=== PATIENT | female | born 1940 | race Caucasian/White ===

== ENCOUNTER 2023-04-01 06:01 | Observation (INO) | payer OTHER ==
[2023-03-28 13:43] LABS: Absolute Lymphocytes (CBC) 1.6 K/uL (0.7-4.9); Hematocrit 41.8 % (36.0-45.0); Lymphocytes % 26.3 % (15.3-44.8); MCV 90.8 fL (80-100); MPV 9.6 fL (7.6-11.3)
[2023-03-28 13:59] LABS: Potassium 4.2 mEq/L (3.5-5.1)
[2023-04-01] MEDS ORDERED: CLINDAMYCIN 900MG/D5W 900 MG/50 ML IVPB IV ONE (06:24)
[2023-04-01] MEDS ORDERED: Ringers Lactate 1,000 ML IV ONE (06:24)
[2023-04-01] MEDS ORDERED: DEPO-MEDROL 40 MG/ML IM ONE (06:34)
[2023-04-01] MEDS ORDERED: propofoL 200 MG/20 ML VIAL IV ONE ×4 (06:34→09:03)
[2023-04-01] MEDS ORDERED: KETAMINE HCL IN 0.9 % NACL 50 MG/5 ML SYRINGE IV ONE (06:35)
[2023-04-01] MEDS ORDERED: THROMBIN 5000 UNITS/VIAL TOP ONE (06:35)
[2023-04-01] MEDS ORDERED: dexAMETHasone 10 MG/ML VIAL ONE (06:35)
[2023-04-01] MEDS ORDERED: FENTANYL CITR 100 MCG/2 ML ONE (06:35)
[2023-04-01] MEDS ORDERED: MIDAZOLAM HCL 2 MG/2 ML INJ ONE (06:35)
[2023-04-01] MEDS ORDERED: LIDOCAINE 2% MPF 5 ML VIAL ONE (06:35)
[2023-04-01] MEDS ORDERED: ONDANSETRON 4 MG/2 ML VIAL ONE (06:36)
[2023-04-01] MEDS ORDERED: ROCURONIUM 50 MG/5 ML VIAL IV ONE (06:41)
[2023-04-01] MEDS ORDERED: EPHEDRINE SULF 50 MG/ML VIAL ONE (07:55)
[2023-04-01] MEDS: TRANEXAMIC ACID 1,000 MG/10 ML VIAL IV ONE ×2 (08:30→08:38)
[2023-04-01] MEDS ORDERED: VANCOMYCIN 1 GM/VIAL ONE (09:13)
[2023-04-01] MEDS ORDERED: KETOROLAC 30 MG/ML INJ ONE (09:17)
[2023-04-01] MEDS ORDERED: Mastisol Adhesive Liq ONE (09:27)
[2023-04-01] MEDS: HYDROMORPHONE HCL 2 MG/ML inj ONE ×4 (10:01→10:47)
[2023-04-01] MEDS: Ringers Lactate 1,000 ML IV ONE ×2 (10:13→10:47)
[2023-04-01] MEDS ORDERED: MORPHINE 2 MG/ML SYR IV PRN (10:41)
[2023-04-01] MEDS ORDERED: ONDANSETRON 4 MG/2 ML VIAL IV PRN (10:44)
[2023-04-01] MEDS ORDERED: HYDROCODONE/APAP 7.5/325 MG TAB PO PRN (10:46)
--- OUTSIDE RECORDS SUMMARY | 2023-04-01 10:50 | XMS REPORT | Continuity of Care Document ---
:1940 Author Organization [facility] t Address [address] [place] [address] Care Team Providers Name Role Phone CRISTINA VÁSQUEZ Primary Care Physician Unavailable Cristina Vásquez Attending Clinician Unavailable Shelli Pearl Attending Clinician Unavailable ANDRES OBREGON Attending Clinician Unavailable Latrell Lott DO Attending Clinician MACY DONIS Attending Clinician Unavailable Param Hodge MD Attending Clinician PARAM HODGE Attending Clinician Unavailable Magdalena Cardenas RPH Attending Clinician Unavailable Macy Donis MD Attending Clinician Doctor Unassigned, [place] Attending Clinician Unavailable Mariano Reynolds MA Attending Clinician Unavailable YESENIA CORBETT Attending Clinician Unavailable KERRI BRYANT Attending Clinician Unavailable MISAEL KC Attending Clinician Unavailable MACY DONIS Admitting Clinician Unavailable YESENIA CORBETT Admitting Clinician Unavailable Payers Payer Name Policy Type Policy Number Effective Date Expiration Date S ource MEDICARE MB [id number] 2006 [facility] [place] 00:00:[place] [id number] [facility] [place] [id number] 2017 [facility] 00:[facility]:[address] [facility] MEDICARE MB [id number] 2006 [facility] NOVITAS 00:00:00 [place] [id number] [facility] [place] [id number] 2017 [facility] 00:00:00 [facility] Problems Condition Condition Condition Status Onset Resolution Last Treating Co mments Source Name Details Category Date Date Treatment Clinician Date Osteopenia Osteopenia Disease Active M ethodi of of 11-29 st multiple multiple 00:00: Hospit a sites sites 00 l Rheumatoid Rheumatoid Disease Active M ethodi arthritis arthritis 03-04 involving involving 00:00: Hosp juan f multiple multiple 00 l sites with sites with positive positive rheumatoid rheumatoid factor factor Long-term Long-term Disease Active Met hodi use of use of 03-04 high-risk high-risk 00:00: Hosp juan f medication medication 00 l 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 unspecifie 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 disease, St unspecifie [facility] d whether [facility] Sciatica Sciatica Problem Commo n of right [facility] side [facility] Allergic Allergic Disease Active Metho di st Hospita l Arthritis Arthritis Disease Active Met hodi st [facility]ospita l Diabetes Diabetes Disease Active Overview: Me thodi mellitus mellitus Formattin st g of this Hospita note l might be different from the original. Pre Diabetic Hypertensi Hypertensi Disease Active M ethodi on on st Hospita l Allergies, Adverse Reactions, Alerts Allergy Allergy Status Severity Reaction(s) Onset Inactive Treating Comm ents Source Name Type Date Date Clinician LEFLUNOM DRUG Active Unknown-Cmnt 2021-10 Un harrsi EMMANUEL INGREDI 2-21 ity of 00:00: [place] 00 [facility] METHOTRE DRUG Active Unknown-Cmnt 2021-10 Un harris XATE INGREDI 2-21 ity of 00:00: Medical Branch Leflunom Propensi Active Unknown - 2021-10 Uni vers emmanuel ty to See comments 2-21 ity of adverse 00:00: [place] reaction 00 Medical s Branch Methotre Propensi Active Unknown - 2021-10 Uni vers xate ty to See comments 2-21 ity of adverse 00:00: [place] reaction 00 Medical s Branch MELOXICA DRUG Active High COUGH 2018-10 Univers M INGREDI 0- ity of 00:00: 00 Medical Branch Meloxica Propensi Active Other - See 2018-10 Double U nivers m ty to comments 031 Vision[facility]Ki ity o f adverse 00:00: dney [place] reaction issue per Medic al s patient Branch at this timeDoubl e Vision.Ki dney issue per patient at this time Meloxica Propensi Active Cough 2018-10 Double Method i m ty to 0-[address] adverse 00:00: dney Hospita reaction 00 issue per l s to patient drug at this time Penicill Propensi Active Rash Method i ins ty to 1-10 st adverse 00:00: Hospita reaction 00 l s to drug PENICILL Drug Active Low Rash Univers INS Class 10-07 ity of 00:00: [place] [facility] [place] Penicill Drug Active Rash Univers ins Allergy 10-07 ity of 00:00: [address] methotre methotre Active wt loss, Comm on xate xate hair loss [facility] leflunom leflunom Active unwell Common emmanuel emmanuel [facility] meloxica meloxica Active kidney Common m m failure [facility] NO KNOWN Drug Active Univers ALLERGIE Class ity of S [facility] [place] [facility] Family History Family Member Diagnosis Comments Start Date Stop Date Source Natural brother Hypertension [facility] Natural brother Cancer [facility] Natural brother Heart disease [facility] child Cancer [facility]ital Cousin Diabetes Jainism [facility] ital Natural daughter Cancer [facility] Natural father Alcohol abuse [facility] Maternal grandfather Diabetes [facility] Maternal grandfather Heart disease [facility] Maternal grandfather Hypertension [facility] Maternal grandmother Hypertension [facility] Maternal grandmother Stroke [facility] Natural mother Heart disease [facility] Natural [facility] Hy[facility] Natural mother Osteoarthritis [facility] Natural mother Other [facility] Natural mother Rheum arthritis [facility] Paternal grandfather Alcohol abuse [facility] Paternal grandmother [facility] Social History Social Habit Start Date Stop Date Quantity Comments Source Gender identity 2020-02-20 Identifies as Method ist 10:33:32 female gender Hospital (finding) Sexual orientation 2020-02-20 [facility] Hospital [facility] of Tobacco [facility] Use [facility] Tobacco use and 2023-02-22 2023-02-22 Smokeless tobacco Me thodist exposure 00:00:00 00:00:00 non-user Hospital Alcohol intake 2023-02-22 2023-02-22 Ex-drinker Jainism 00:00:00 00:00:00 (finding) Hospital History of Social 2023-02-22 2023-02-[address] function 00:00:00 00:00:00 Hospital Exposure to 2022-12-10 2022-12-20 Not sure [facility]-CoV-2 (event) 00:00:00 08:13:00 [facility] [place] [facility] Sex Ass[birth year] At [birth year] Universit y of 00:00:00 00:00:00 [facility] [place] [facility] Smoking Status Start Date Stop Date Source Never smoked tobacco Jainism H [facility]spital Tobacco [facility] Medications Ordered Filled Start Stop Current Ordering Indication Dosage Frequency Signature Comments Components Source Medication Medication Date Date Medication? Clinician (SIG) Name Name CALCIUM Yes 1{tbl} QD Take 1 Method i CARBONATE/V 5-[address] ITAMIN D3 10:56: mouth Hospita (CALCIUM 06 daily. l 600 + D,3, ORAL) OMEGA-3 Yes 1{tbl} QD Take 1 Method i FATTY 5-[address] ACIDS/FISH 10:20: mouth Hospit a OIL (OMEGA 54 daily. l 3 FISH OIL ORAL) multivitami Yes 1{tbl} QD Take 1 Me thodi n tablet 5-[address] 10:20: mouth Hospita 54 daily. l cyanocobala Yes 500ug QD Take 1 Met hodi min 5-[address] (VITAMIN 10:20: (500 mcg Hospi ta B-12) 500 54 total) by l MCG tablet mouth daily. denosumab Yes 60mg Q180D Inject 1 Met hodi (PROLIA) 60 5-19 mL ([address] mg/mL 10:20: total) Hospita syringe 54 under the l syringe skin every 6 (six) months. hydroxychlo Yes [id number] 200mg QD Take 1 Methodi roquine 5-[address] (PLAQUENIL) 00:00: (200 mg Hos gagan 200 mg 00 total) by l tablet mouth daily. vitamin Yes 1{capsu Take 1 Metho di D3-vitamin 5-13 le} capsule by st K2 00:00: mouth. Hospita 1,250-200 00 l mcg capsule hydroxychlo 2022-0 2022- No [id number] TAKE 1 Methodi roquine 4-24 05-[address] (PLAQUENIL) 00:00: 00:00 MOUTH Hosp juan f 200 mg 00 :00 TWICE l tablet DAILY lidocaine 2022-0 Yes ZTlido 1.8 Un harris (ZTLIDO) 3-16 % topical ity of 1.8 % PtMd 08:24: patch [place] 50 APPLY 1 Medical PATCH BY Branch TOPICAL ROUTE ONCE DAILY (MAY WEAR UP TO 12HOURS.) lidocaine 2022-0 Yes ZTlido 1.8 Un harris (ZTLIDO) 3-16 % topical ity of 1.8 % PtMd 08:24: patch [place] 50 APPLY 1 Medical PATCH BY Branch TOPICAL ROUTE ONCE DAILY (MAY WEAR UP TO 12HOURS.) alendronate 2022-0 Yes alendronat Univers 70 mg 3-16 e 70 mg ity of tablet 08:24: tablet [address] vitamin 3-0 Yes 500ug Take 1 Univers B-12 500 3-16 tablet by ity of mcg tablet 08:24: mouth. [address] denosumab 2022-0 Yes 60mg inject 1 Univ ers 60 mg/mL 3-16 mL under ity of injection 08:24: the skin. Ian as 49 [facility] alendronate 2022-0 Yes alendronat Univers 70 mg 3-16 e 70 mg ity of tablet 08:24: tablet [address] vitamin 3-0 Yes 500ug Take 1 Univers B-12 500 3-16 tablet by ity of mcg tablet 08:24: mouth. [address] denosumab 2022-0 Yes 60mg inject 1 Univ ers 60 mg/mL 3-16 mL under ity of injection 08:24: the skin. Ian as 49 [facility] hydrOXYchlo 2022-0 Yes Univer s roQUINE 200 2-21 ity of mg tablet 00:00: [address] hydrOXYchlo 3-0 Yes Univer s roQUINE 200 2-21 ity of mg tablet 00:00: [address] hydroxychlo 3-0 2023- No [id number] 200mg Q.5D Take 1 Methodi roquine 2-21 04-[address] (PLAQUENIL) 00:00: 00:00 (200 mg Ho spita 200 mg 00 :00 total) by l tablet mouth 2 (two) times a day. atorvastati Yes Univer s n 20 mg 2-20 ity of tablet 00:00: [place] [facility] atorvastati 0 Yes Univer s n 20 mg 2-20 ity of tablet 00:00: [place] [facility] atorvastati 0 Yes Univer s n 20 mg 2-20 ity of tablet 00:00: [place] [facility] atorvastati 0 Yes Univer s n 20 mg 2-20 ity of tablet 00:00: [address] atorvastati Yes Method i n (LIPITOR) 2-20 st 20 mg 00:00: Hospita tablet 00 l hydrOXYchlo 2023- No 200mg Take 1 Un harris roQUINE 200 06-19 tablet by it y of mg tablet 00:00: 05:59 mouth. [place] 00 :00 [facility] hydrOXYchlo 2023- No 200mg Take 1 Un harris roQUINE 200 06-19-22 tablet by it y of mg tablet 00:00: 05:59 mouth. [place] 00 :00 [facility] hydrOXYchlo 2022- No [id number] TAKE 1 Methodi roQUINE 06-[address] (PLAQUENIL) 00:00: 00:00 MOUTH IN H ospita 200 mg 00 :00 THE l tablet MORNING AND 1 TABLET BY MOUTH BEFORE BEDTIME hydrOXYchlo 2021-2021- No [id number] TAKE 1 Methodi roQUINE 04-16-[address] (PLAQUENIL) 00:00: 00:00 MOUTH IN H ospita 200 mg 00 :00 THE l tablet MORNING AND 1 TABLET BEFORE BEDTIME hydrOXYchlo 2021-2021- No [id number] 200mg Q.5D Take 1 Methodi roQUINE 03-14-[address] (PLAQUENIL) 00:00: 00:00 (200 mg Ho spita 200 mg 00 :00 total) by l tablet mouth 2 (two) times a day. [employer] BR[employer] ONLY PER PT REQUEST diclofenac 2022- No Q.25D Apply Meth regis (Voltaren) 11-[address] 1 % gel 00:00: 05:59 4 (four) Hospi ta 00 :00 times a l day. Atorvastati Atorvastati Yes Shelli 1 tablet Common n Calcium n Calcium 4-25 Millender in evening Spirit 00:00: - [facility] Dexamethaso Dexamethaso 2018-0 No 10mg Common ne ne 11-27 Spirit 00:00: - [facility] Dexamethaso Dexamethaso 2018-0 No 10mg Common ne ne 11-27 Spirit 00:00: - [facility] Dexamethaso Dexamethaso 2018-0 No 10mg Common ne ne 11-27 Spirit 00:00: - [facility] Dexamethaso Dexamethaso 2018-0 No 10mg Common ne ne 11-27 Spirit 00:00: - [facility] Dexamethaso Dexamethaso 2018-0 No 10mg Common ne ne 11-27 Spirit 00:00: - [facility] Dexamethaso Dexamethaso 2018-0 No 10mg Common ne ne 11-27 Spirit 00:00: - [facility] Dexamethaso Dexamethaso 2018-0 No 10mg Common ne ne 11-27 Spirit 00:00: - [facility] Dexamethaso Dexamethaso 2018-0 No 10mg Common ne ne 11-27 Spirit 00:00: - [facility] Dexamethaso Dexamethaso 2018-0 No 10mg Common ne ne 11-27 Spirit 00:00: - [facility] ascorbic 2017-0 Yes Methodi acid, 10-07 st vitamin C, 00:00: Hospita (VITAMIN C) 00 l 1000 MG tablet RESTASIS 2015-10 Yes 1[drp] Administer M ethodi 0.05 % 1-[address] ophthalmic 00:00: both eyes. H ospita emulsion 00 l lisinopril 2015-10 Yes 5mg QD Take 1 Metho di (PRINIVIL,Z 1-09 tablet (5 st ESTRIL) 5 00:00: mg total) Hos gagan mg tablet 00 by mouth l daily. Lipitor Lipitor Yes Shelli 1 tablet Comm on Millender [facility] Methotrexat Methotrexat Yes Shelli not Common e e Millender defined [facility] Leflunomide Leflunomide Yes Shelli 1 tablet Common Millender [facility] Hydroxychlo Hydroxychlo Yes Shelli 1 tablet Common roquine roquine Millender with food Spirit Sulfate Sulfate or milk [facility] Lisinopril Lisinopril Yes Shelli as Co mmon Millender directed [facility] Pryor 3 Pryor 3 Yes Shelli 1 capsule Com mon Millender [facility] Elyssa Elyssa Yes Shelli not Common Millender defined [facility] Restasis Restasis Yes Shelli not Common Millender defined [facility] Meloxicam Meloxicam Yes Shelli not Comm on Millender defined [facility] Folic Acid Folic Acid Yes Shelli not Co mmon Millender defined [facility] Celebrex Celebrex Yes Shelli 1 capsule C ommon Millender with food Spiri [facility] Calcium + Calcium + No 1{table QD Calcium + D3 600-800 D3 600-800 t_with_ D3 600-800 MG-UNIT MG-UNIT a_meal} MG-UNIT Atorvastati Atorvastati No Atorvastat n Calcium n Calcium in Calcium 20 MG 20 MG 20 MG Restasis Restasis No Restasis Hydroxychlo Hydroxychlo No 1{table Hydroxychl roquine roquine t_with_ oroquine Sulfate 200 Sulfate 200 food_or Sulfate MG MG _milk} 200 MG Lisinopril Lisinopril No 1{table QD Lisinopril 5 MG 5 MG t} 5 MG Multi For Multi For No Multi For Her 50+ - Her 50+ - Her 50+ - Prolia 60 Prolia 60 No Prolia 60 MG/ML MG/ML MG/ML Pryor 3 340 Pryor 3 340 No 1{capsu QD Pryor 3 MG MG le} 340 MG Elyssa Elyssa No Elyssa Calcium + Calcium + No 1{table QD Calcium + D3 600-800 D3 600-800 t_with_ D3 600-800 MG-UNIT MG-UNIT a_meal} MG-UNIT Atorvastati Atorvastati No Atorvastat n Calcium n Calcium in Calcium 20 MG 20 MG 20 MG Restasis Restasis No Restasis Hydroxychlo Hydroxychlo No 1{table Hydroxychl roquine roquine t_with_ oroquine Sulfate 200 Sulfate 200 food_or Sulfate MG MG _milk} 200 MG Elyssa Elyssa No Elyssa Multi For Multi For No Multi For Her 50+ - Her 50+ - Her 50+ - Prolia 60 Prolia 60 No Prolia 60 MG/ML MG/ML MG/ML Pryor 3 340 Pryor 3 340 No 1{capsu QD Pryor 3 MG MG le} 340 MG Lisinopril Lisinopril No Lisinopril 5 MG 5 MG 5 MG Calcium + Calcium + No 1{table QD Calcium + D3 600-800 D3 600-800 t_with_ D3 600-800 MG-UNIT MG-UNIT a_meal} MG-UNIT Restasis Restasis No Restasis Elyssa Elyssa No Elyssa Multi For Multi For No Multi For Her 50+ - Her 50+ - Her 50+ - Atorvastati Atorvastati No Atorvastat n Calcium n Calcium in Calcium 20 MG 20 MG 20 MG Prolia 60 Prolia 60 No Prolia 60 MG/ML MG/ML MG/ML Hydroxychlo Hydroxychlo No 1{table Hydroxychl roquine roquine t_with_ oroquine Sulfate 200 Sulfate 200 food_or Sulfate MG MG _milk} 200 MG Pryor 3 340 Pryor 3 340 No 1{capsu QD Pryor 3 MG MG le} 340 MG Lisinopril Lisinopril No Lisinopril 5 MG 5 MG 5 MG Elyssa Elyssa No Elyssa Hydroxychlo Hydroxychlo No 1{table Hydroxychl roquine roquine t_with_ oroquine Sulfate 200 Sulfate 200 food_or Sulfate MG MG _milk} 200 MG Restasis Restasis No Restasis Prolia 60 Prolia 60 No Prolia 60 MG/ML MG/ML MG/ML Pryor 3 340 Pryor 3 340 No 1{capsu QD Pryor 3 MG MG le} 340 MG Calcium + Calcium + No 1{table QD Calcium + D3 600-800 D3 600-800 t_with_ D3 600-800 MG-UNIT MG-UNIT a_meal} MG-UNIT Lisinopril Lisinopril No Lisinopril 5 MG 5 MG 5 MG Multi For Multi For No Multi For Her 50+ - Her 50+ - Her 50+ - Atorvastati Atorvastati No Atorvastat n Calcium n Calcium in Calcium 20 MG 20 MG 20 MG Elyssa Elyssa No Elyssa Hydroxychlo Hydroxychlo No 1{table Hydroxychl roquine roquine t_with_ oroquine Sulfate 200 Sulfate 200 food_or Sulfate MG MG _milk} 200 MG Restasis Restasis No Restasis Prolia 60 Prolia 60 No Prolia 60 MG/ML MG/ML MG/ML Pryor 3 340 Pryor 3 340 No 1{capsu QD Pryor 3 MG MG le} 340 MG Calcium + Calcium + No 1{table QD Calcium + D3 600-800 D3 600-800 t_with_ D3 600-800 MG-UNIT MG-UNIT a_meal} MG-UNIT Lisinopril Lisinopril No Lisinopril 5 MG 5 MG 5 MG Multi For Multi For No Multi For Her 50+ - Her 50+ - Her 50+ - Atorvastati Atorvastati No Atorvastat n Calcium n Calcium in Calcium 20 MG 20 MG 20 MG Elyssa Elyssa No Elyssa Hydroxychlo Hydroxychlo No 1{table Hydroxychl roquine roquine t_with_ oroquine Sulfate 200 Sulfate 200 food_or Sulfate MG MG _milk} 200 MG Restasis Restasis No Restasis Prolia 60 Prolia 60 No Prolia 60 MG/ML MG/ML MG/ML Pryor 3 340 Pryor 3 340 No 1{capsu QD Pryor 3 MG MG le} 340 MG Calcium + Calcium + No 1{table QD Calcium + D3 600-800 D3 600-800 t_with_ D3 600-800 MG-UNIT MG-UNIT a_meal} MG-UNIT Lisinopril Lisinopril No Lisinopril 5 MG 5 MG 5 MG Multi For Multi For No Multi For Her 50+ - Her 50+ - Her 50+ - Atorvastati Atorvastati No Atorvastat n Calcium n Calcium in Calcium 20 MG 20 MG 20 MG Elyssa Elyssa No Elyssa Hydroxychlo Hydroxychlo No 1{table Hydroxychl roquine roquine t_with_ oroquine Sulfate 200 Sulfate 200 food_or Sulfate MG MG _milk} 200 MG Restasis Restasis No Restasis Prolia 60 Prolia 60 No Prolia 60 MG/ML MG/ML MG/ML Pryor 3 340 Pryor 3 340 No 1{capsu QD Pryor 3 MG MG le} 340 MG Calcium + Calcium + No 1{table QD Calcium + D3 600-800 D3 600-800 t_with_ D3 600-800 MG-UNIT MG-UNIT a_meal} MG-UNIT Lisinopril Lisinopril No Lisinopril 5 MG 5 MG 5 MG Multi For Multi For No Multi For Her 50+ - Her 50+ - Her 50+ - Atorvastati Atorvastati No Atorvastat n Calcium n Calcium in Calcium 20 MG 20 MG 20 MG Elyssa Elyssa No Elyssa Hydroxychlo Hydroxychlo No 1{table Hydroxychl roquine roquine t_with_ oroquine Sulfate 200 Sulfate 200 food_or Sulfate MG MG _milk} 200 MG Restasis Restasis No Restasis Prolia 60 Prolia 60 No Prolia 60 MG/ML MG/ML MG/ML Pryor 3 340 Pryor 3 340 No 1{capsu QD Pryor 3 MG MG le} 340 MG Calcium + Calcium + No 1{table QD Calcium + D3 600-800 D3 600-800 t_with_ D3 600-800 MG-UNIT MG-UNIT a_meal} MG-UNIT Lisinopril Lisinopril No Lisinopril 5 MG 5 MG 5 MG Multi For Multi For No Multi For Her 50+ - Her 50+ - Her 50+ - Atorvastati Atorvastati No Atorvastat n Calcium n Calcium in Calcium 20 MG 20 MG 20 MG Elyssa Elyssa No Elyssa Hydroxychlo Hydroxychlo No 1{table Hydroxychl roquine roquine t_with_ oroquine Sulfate 200 Sulfate 200 food_or Sulfate MG MG _milk} 200 MG Prolia 60 Prolia 60 No Prolia 60 MG/ML MG/ML MG/ML Multi For Multi For No Multi For Her 50+ - Her 50+ - Her 50+ - Pryor 3 340 Pryor 3 340 No 1{capsu QD Pryor 3 MG MG le} 340 MG Atorvastati Atorvastati No QD Atorvastat n Calcium n Calcium in Calcium 20 MG 20 MG 20 MG Lisinopril Lisinopril No Lisinopril 5 MG 5 MG 5 MG Calcium + Calcium + No 1{table QD Calcium + D3 600-800 D3 600-800 t_with_ D3 600-800 MG-UNIT MG-UNIT a_meal} MG-UNIT Restasis Restasis No Restasis Alendronate Alendronate No Alendronat Sodium 70 Sodium 70 e Sodium MG MG 70 MG Pryor 3 340 Pryor 3 340 No 1{capsu QD Pryor 3 MG MG le} 340 MG Elyssa Elyssa No Elyssa Restasis Restasis No Restasis Multi For Multi For No Multi For Her 50+ - Her 50+ - Her 50+ - Calcium + Calcium + No 1{table QD Calcium + D3 600-800 D3 600-800 t_with_ D3 600-800 MG-UNIT MG-UNIT a_meal} MG-UNIT Atorvastati Atorvastati No QD Atorvastat n Calcium n Calcium in Calcium 20 MG 20 MG 20 MG Hydroxychlo Hydroxychlo No 1{table Hydroxychl roquine roquine t_with_ oroquine Sulfate 200 Sulfate 200 food_or Sulfate MG MG _milk} 200 MG Lisinopril Lisinopril No 1{table QD Lisinopril 5 MG 5 MG t} 5 MG Calcium + Calcium + No 1{table QD Calcium + D3 600-800 D3 600-800 t_with_ D3 600-800 MG-UNIT MG-UNIT a_meal} MG-UNIT Alendronate Alendronate No Alendronat Sodium 70 Sodium 70 e Sodium MG MG 70 MG Restasis Restasis No Restasis Elyssa Elyssa No Elyssa Lisinopril Lisinopril No 1{table QD Lisinopril 5 MG 5 MG t} 5 MG Hydroxychlo Hydroxychlo No 1{table Hydroxychl roquine roquine t_with_ oroquine Sulfate 200 Sulfate 200 food_or Sulfate MG MG _milk} 200 MG Multi For Multi For No Multi For Her 50+ - Her 50+ - Her 50+ - Pryor 3 340 Pryor 3 340 No 1{capsu QD Pryor 3 MG MG le} 340 MG Atorvastati Atorvastati No QD Atorvastat n Calcium n Calcium in Calcium 20 MG 20 MG 20 MG Immunizations Ordered Immunization Filled Immunization Date Status Commen ts Source Name Name VALENTINO COVID-19 2021-10-11 Completed Method[facility] t MRNA VACCINATION 00:00:00 Hospital FLUZONE HIGH DOSE FLUZONE HIGH DOSE 2021-07-03 Completed [facility] - OVER [facility] OVER 65 08:32:00 [facility] FLUZONE HIGH DOSE FLUZONE HIGH DOSE 2021-07-03 Completed [facility] - OVER 65 OVER 65 08:32:00 [facility] FLUZONE HIGH DOSE FLUZONE HIGH DOSE 2021-07-03 Completed [facility] - OVER 65 OVER 65 08:32:00 [facility] FLUZONE HIGH DOSE FLUZONE HIGH DOSE 2021-07-03 Completed [facility] - OVER 65 OVER 65 08:32:00 [facility] FLUZONE HIGH DOSE FLUZONE HIGH DOSE 2021-07-03 Completed [facility] - OVER 65 OVER 65 08:32:00 [facility] FLUZONE HIGH DOSE FLUZONE HIGH DOSE 2021-07-03 Completed [facility] - OVER 65 OVER 65 08:32:00 [facility] FLUZONE HIGH DOSE FLUZONE HIGH DOSE 2021-07-03 Completed [facility] - OVER 65 OVER 65 08:32:00 [facility] FLUZONE HIGH DOSE FLUZONE HIGH DOSE 2021-07-03 Completed [facility] - OVER 65 OVER 65 08:32:00 [facility] FLUZONE HIGH DOSE FLUZONE HIGH DOSE 2021-07-03 Completed [facility] - OVER 65 OVER 65 08:32:00 [facility] FLUZONE HIGH DOSE FLUZONE HIGH DOSE 2021-07-03 Completed [facility] - OVER 65 OVER 65 08:32:00 [facility] FLUZONE HIGH DOSE FLUZONE HIGH DOSE 2021-07-03 Completed [facility] - OVER 65 OVER 65 08:32:00 [facility] COVID-19 Vaccine COVID-19 Vaccine 2021-02-18 Completed Co [facility] - (Michael) (Michael) 08:30:00 [facility] COVID-19 Vaccine COVID-19 Vaccine 2021-02-18 Completed Co [facility]mon [facility] - (Michael) (Michael) 08:30:00 [facility] COVID-19 Vaccine COVID-19 Vaccine 2021-02-18 Completed Co [facility]mon [facility] - (Michael) (Michael) 08:30:00 [facility] COVID-19 Vaccine COVID-19 Vaccine 2021-02-18 Completed Co [facility] - (Michael) (Michael) 08:30:00 [facility] COVID-19 Vaccine COVID-19 Vaccine 2021-02-18 Completed Co mmon [facility] - (Michael) (Michael) 08:30:00 [facility] COVID-19 Vaccine COVID-19 Vaccine 2021-02-18 Completed [facility] (Michael) (Michael) 08:30:00 [facility] COVID-19 Vaccine COVID-19 Vaccine 2021-02-18 Completed [facility] (Michael) (Michael) 08:30:00 [facility] COVID-19 Vaccine COVID-19 Vaccine 2021-02-18 Completed [facility] (Michael) (Michael) 08:30:00 [facility] COVID-19 Vaccine COVID-19 Vaccine 2021-02-18 Completed [facility] (Michael) (Michael) 08:30:00 [facility] COVID-19 Vaccine COVID-19 Vaccine 2021-02-18 Completed [facility] (Michael) (Michael) 08:30:00 [facility] COVID-19 Vaccine COVID-19 Vaccine 2021-02-18 Completed [facility] (Michael) (Michael) 08:30:00 [facility] MICHAEL COVID-19 2021-02-18 Completed Methodis t AD26 VACCINATION 00:00:00 Hospital PNEUMAVAX 23 PNEUMAVAX 2019-05-05 Completed [facility] - 11:46:00 [facility] PNEUMAVAX 23 PNEUMAVAX 2019-05-05 Completed [facility] - 11:46:00 [facility] PNEUMAVAX 23 PNEUMAVAX 2019-05-05 Completed [facility] - 11:46:00 [facility] PNEUMAVAX 23 PNEUMAVAX 2019-05-05 Completed [facility] - 11:46:00 [facility] PNEUMAVAX 23 PNEUMAVAX 2019-05-05 Completed [facility] - 11:46:00 [facility] PNEUMAVAX 23 PNEUMAVAX 2019-05-05 Completed [facility] - 11:46:00 [facility] PNEUMAVAX 23 PNEUMAVAX 2019-05-05 Completed [facility] - 11:46:00 [facility] PNEUMAVAX 23 PNEUMAVAX 2019-05-05 Completed [facility] - 11:46:00 [facility] PNEUMAVAX 23 PNEUMAVAX 23 2019-05-05 Completed [facility] - 11:46:00 [facility] PNEUMAVAX 23 PNEUMAVAX 2019-05-05 Completed [facility] - 11:46:00 [facility] PNEUMAVAX 23 PNEUMAVAX 2019-05-05 Completed [facility] - 11:46:00 [facility] PNEUMAVAX 23 PNEUMAVAX 2019-05-05 Completed [facility] - 00:00:00 [facility] Dexamethasone Dexamethasone 2017-11-27 Completed [facility] p[facility] - 10:52:00 [facility] Dexamethasone Dexamethasone 2017-11-27 Completed [facility] - 10:52:00 [facility] Vital Signs Vital Name Observation Time Observation Value Comments Source Systolic blood 2022-12-20 13:23:00 143 mm[Hg] [facility] Diastolic blood 2022-12-20 13:23:00 70 mm[Hg] [facility] Heart rate 2022-12-20 13:23:00 69 /min [facility] Body height 2022-12-20 13:21:00 167.6 cm [facility] Body weight 2022-12-20 13:21:00 81.012 kg [facility] BMI 2022-12-20 13:21:00 28.83 kg/m2 [facility] height 2022-07-27 09:40:00 66.3 [in_i] [facility] S pirit [facility] weight 2022-07-27 09:40:00 185.4 [lb_av] [facility] temperature 2022-07-27 09:40:00 96.8 [degF] [facility] bmi 2022-07-27 09:40:00 29.65 kg/m2 [facility] oximetry 2022-07-27 09:40:00 97 % Common [facility] respiratory rate 2022-07-27 09:40:00 18 /min Comm on [facility] blood pressure 2022-07-27 09:40:00 139 mm[Hg] [facility] - systolic [facility] blood pressure 2022-07-27 09:40:00 63 mm[Hg] [facility] - diastolic [facility] height 2022-07-25 10:00:00 65.5 [in_i] Common [facility] weight 2022-07-25 10:00:00 187.0 [lb_av] [facility] temperature 2022-07-25 10:00:00 98.7 [degF] [facility] bmi 2022-07-25 10:00:00 30.64 kg/m2 [facility] height 2022-01-01 09:40:00 65.5 [in_i] [facility] weight 2022-01-01 09:40:00 187 [lb_av] [facility] temperature 2022-01-01 09:40:00 97.0 [degF] [facility] bmi 2022-01-01 09:40:00 30.64 kg/m2 [facility] oximetry 2022-01-01 09:40:00 98 % [facility] respiratory rate 2022-01-01 09:40:00 16 /min Comm on [facility] blood pressure 2022-01-01 09:40:00 114 mm[Hg] Common [facility] - systolic [facility] blood pressure 2022-01-01 09:40:00 54 mm[Hg] Common [facility] - diastolic [facility] height 2021-07-19 14:20:00 65.5 [in_i] Common [facility] weight 2021-07-19 14:20:00 186 [lb_av] Common [facility] temperature 2021-07-19 14:20:00 97.5 [degF] Common [facility] bmi 2021-07-19 14:20:00 30.48 kg/m2 [facility] oximetry 2021-07-19 14:20:00 98 % [facility] respiratory rate 2021-07-19 14:20:00 17 /min Comm on [facility] blood pressure 2021-07-19 14:20:00 138 mm[Hg] Common [facility] - systolic [facility] blood pressure 2021-07-19 14:20:00 78 mm[Hg] [facility] diastolic [facility] height 2021-07-03 08:20:00 65.5 [in_i] [facility] weight 2021-07-03 08:20:00 186.8 [lb_av] [facility] temperature 2021-07-03 08:20:00 97.4 [degF] [facility] bmi 2021-07-03 08:20:00 30.61 kg/m2 [facility] oximetry 2021-07-03 08:20:00 97 % [facility] respiratory rate 2021-07-03 08:20:00 16 /min Comm on [facility] blood pressure 2021-07-03 08:20:00 100 mm[Hg] [facility] systolic [facility] blood pressure 2021-07-03 08:20:00 58 mm[Hg] [facility] diastolic [facility] Systolic blood 2023-02-22 15:21:00 138 mm[Hg] Method ist [facility] pressure Diastolic blood 2023-02-22 15:21:00 78 mm[Hg] [facility] pressure Heart rate 2023-02-22 15:21:00 70 /min [facility] Body temperature 2023-02-22 15:21:00 36.67 [facility] Respiratory rate 2023-02-22 15:21:00 18 /min [facility] Body height 2023-02-22 15:21:00 154.9 cm [facility] Body weight 2023-02-22 15:21:00 80.105 kg [facility] BMI 2023-02-22 15:21:00 33.37 kg/m2 [facility] Oxygen saturation in 2023-02-22 15:21:00 97 /min [facility] Arterial blood by Pulse oximetry Procedures Procedure Date / Time Performing Clinician Source Performed AST (SGOT) 2023-02-22 16:08[facility]00 [facility] ALT (SGPT) 2023-02-22 16:08:00 [facility] CREATININE LEVEL 2023-02-22 16:08:00 [facility] Jainism H ospital ALBUMIN LEVEL 2023-02-22 16:08:00 [facility] CBC WITH PLATELET AND 2023-02-22 16:08:00 [facility] DIFFERENTIAL SEDIMENTATION RATE 2023-02-22 16:08:00 [facility] C-REACTIVE PROTEIN 2023-02-22 16:08:00 [facility] VITAMIN D 25 HYDROXY 2023-02-22 16:08:00 [facility] LEVEL IONIZED CALCIUM 2022-12-05 16:54:00 [facility] BONE DENSITY 2022-12-05 16:50:09 [facility] Jainism Ho spital CT ABDOMEN PELVIS WO 2022-11-16 17:37:52 Macy Donis [facility] CONTRAST Medical Branch ASSIGNMENT OF BENEFITS 2022-11-13 15:17:48 Doctor Unassigned, No [facility] Name Medical Branch CALCIUM LEVEL 2022-06-12 15:09:00 [facility] Plan of Care Planned Activity Planned Date Details Comments Source Future Scheduled 2023-04-01 SHINGLES VACCINES (1 Met [facility] Test 10:47:37 of 2) [code = SHINGLES VACCINES (1 of 2)] Future Scheduled 2023-04-01 65+ P[facility]UMOCOCCAL [facility] Test 10:47:37 VACCINE (2 - PCV) [code = 65+ PNEUMOCOCCAL VACCINE (2 - PCV)] Future Scheduled 2023-04-01 COVID-19 VACCINE (3 - Me [facility] Test 10:47:37 Booster for Michael series) [code = COVID-19 VACCINE (3 - Booster for Michael series)] Future Scheduled 2023-04-01 INFLUENZA VACCINE Method [facility] Hospital Test 10:47:37 [code = INFLUENZA VACCINE] Encounters Start End Encounter Admission Attending Care Care Encounter Source Date/Time Date/Time Type Type Clinicians Facility Department ID 2022-10-26 Outpatient [place], STLMLC STLMLC [id number] Common 11:49:00 Cristina [id number] [facility] 2022-10-23 Outpatient [place], STLMLC STLMLC [id number] Common 10:34:00 Cristina [id number] [facility] 2022-07-25 Outpatient [place], STLMLC STLMLC [id number] Common 11:26:00 Cristina [id number] [facility] 2021-11-01 Outpatient [place], STLMLC STLMLC [id number] Common 13:58:48 Cristina [id number] [facility] 2021-11-01 Outpatient [place], STLMLC STLMLC [id number] Common 12:47:22 Cristina [id number] [facility] 2021-11-01 Outpatient [place], STLMLC STLMLC [id number] Common 12:32:58 Cristina [id number] [facility] 2021-11-01 Outpatient [place], STLMLC STLMLC [id number] Common 11:32:45 Shelli [id number] [facility] 2023-02-22 2023-02-22 Office Kaylie, 1.2.840.1 [id number] Methodi 10:20:00 11:06:56 Visit Pipermanuel 36448.1.[address] 3.430.2.7 Hospit a .3.957755 l .8 2023-02-22 2023-02-22 Travel 1.2.840.1 1.2.100.825 [id number] Methodi 00:00:00 00:00:[address] 3.430.2.7 0.2.7.3.698 Ho spita .3.022510 084.8 l .8 2023-02-22 2023-02-22 Outpatient KAYLIE [facility] [id number] 890 [place] 00:00:00 00:00:00 LATIFA [address] 2023-01-28 2023-01-28 Refill Kaylie, 1.2.840.1 [id number] Methodi 00:00:00 00:00:[address] 3.430.2.7 Hospit a .3.944400 l .8 2022-12-20 2022-12-20 [facility] 1.2.585.334 [id number] Univers 08:45:00 09:21:22 Visit [facility] 350.1.13.10 y [facility] 4.2.7.2.686 Ian as PAULINA?BLEA [phone] [address] MEDICAL OFFICE BUILDING 2022-12-20 2022-12-20 [facility] [id number] Univers 08:45:00 09:21:22 [facility] 2022-12-12 2022-12-12 Nurse Only Kaylie, 1.2.840.1 [id number] Methodi 10:00:00 10:30:[address] 3.430.2.7 Hospit a .3.115003 l .8 2022-12-12 2022-12-12 Travel 1.2.840.1 1.2.180.491 [id number] Methodi 00:00:00 00:00:[address] 3.430.2.7 0.2.7.3.698 Ho spita .3.306453 084.8 l .8 2022-12-12 2022-12-12 Outpatient [facility] [id number] 663 [place] 00:00:00 00:00:[address] 2022-12-05 2022-12-05 Hospital [facility], 1.2.840.1 [id number] Methodi 09:38:59 23:59:00 Encounter Latifa 84511.1.[address] 3.430.2.7 Hospit a .3.482987 l .8 2022-12-05 2022-12-05 Travel 1.2.840.1 1.2.303.750 5414 [id number] Methodi 00:00:00 00:00:[address] 3.430.2.7 0.2.7.3.698 Ho spita .3.940615 084.8 l .8 2022-12-05 2022-12-05 Outpatient [facility] [id number] 188 [place] 00:00:00 00:00:00 LATIFA [address] 2022-12-05 2022-12-05 Outpatient [facility] [id number] 092 [place] 00:00:00 00:00:[address] 2022-12-03 2022-12-03 Orders Fakoya, 1.2.840.1 [id number] Methodi 00:00:00 00:00:00 Only Latifa 54838.1.[address] 3.430.2.7 Hospit a .3.259931 l .8 2022-11-30 2022-11-30 Orders Castorina, 1.2.840.1 [id number] Methodi 00:00:00 00:00:00 Only Magdalena 49396.1.[address] 3.430.2.7 Hospit a .3.868073 l .8 2022-11-27 2022-11-27 Refill Fakkelvina, 1.2.840.1 [id number] Methodi 00:00:00 00:00:[address] 3.430.2.7 Hospit a .3.625624 l .8 2022-11-16 2022-11-16 Outpatient [facility] [id number] Univers 11:13:14 23:59:00 MACY ity [facility] 2022-11-16 2022-11-16 [facility] 1.2.156.900 [id number] Univers 11:13:14 23:59:00 [facility]1.13[facility]10 [facility] 4.2.7.2.686 [facility] [id number] [facility] [address] 2022-11-13 2022-11-13 Outpatient [facility] [id number] Univers 09:30:00 10:03:27 MACY ity [facility] 2022-11-13 2022-11-13 Orders Doctor RICHARDSON 1.2.840.114 [id number] Univers 00:00:00 00:00:00 Only Unassigned, JUAQUIN 350.1.13.10 ity [place] [facility] 4.2.7.2.686 [facility] [id number] [facility] 009 Branch 2022-10-11 2022-10-11 Documentat [facility] 1.2.840.1 [id number] Methodi 00:00:00 00:00:00 [address]ibr[address] Quintana 82339.1.[address] 3.430.2.7 Hospit a .3.657999 l .8 2022-09-05 2022-09-05 (TEL) STLMLC STLMLC [id number] Co mmon 00:00:00 00:00:00 [facility] 2022-08-21 2022-08-21 (WEB) STLMLC STLMLC [id number] Co mmon 00:00:00 00:00:00 [facility] 2022-08-10 2022-08-10 (TEL) STLMLC STLMLC [id number] Co mmon 00:00:00 00:00:00 [facility] 2022-08-09 2022-08-09 (WEB) STLMLC STLMLC [id number] Co mmon 00:00:00 00:00:00 [facility] 2022-08-08 2022-08-08 (TEL) STLMLC STLMLC [id number] Co mmon 00:00:00 00:00:00 [facility] 2022-07-27 2022-07-27 OFFICE STLMLC STLMLC [id number] Co mmon 00:00:00 00:00:00 VISIT EST Spir it PT LEVEL 3 - [facility] 2022-07-25 2022-07-25 SUB ANNUAL STLMLC STLMLC [id number] Common 00:00:00 00:00:00 MCR Spirit WELLNESS - [facility] VISIT [facility] 2022-07-19 2022-07-19 Documentat [place], 1.2.840.1 [id number] Methodi 00:00:00 00:00:00 ion Zaretha 64695.1.[address] 3.430.2.7 Hospit a .3.483789 l .8 2022-07-11 2022-07-11 Telemedici [facility], 1.2.840.1 [id number] Methodi 09:40:00 09:54:17 ne Latifa 39805.1.[address] 3.430.2.7 Hospit a .3.451102 l .8 2022-07-11 2022-07-11 Documentat [place], 1.2.840.1 [id number] Methodi 00:00:00 00:00:00 ion Zaretha 55722.1.[address] 3.430.2.7 Hospit a .3.892376 l .8 2022-07-11 2022-07-11 [facility] [id number] 785 [place] 00:00:00 00:00:00 LATIFA [address] 2022-06-17 2022-06-17 Refill Fakoya, 1.2.840.1 [id number] Methodi 00:00:00 00:00:[address] 3.430.2.7 Hospit a .3.776595 l .8 2022-06-12 2022-06-12 Nurse Only Kaylie, 1.2.840.1 [id number] Methodi 10:30:00 11:00:[address] 3.430.2.7 Hospit a .3.458363 l .8 2022-06-12 2022-06-12 Travel 1.2.840.1 1.2.453.438 [id number] Methodi 00:00:00 00:00:[address] 3.430.2.7 0.2.7.3.698 Ho spita .3.148095 084.8 l .8 2022-06-12 2022-06-12 Outpatient KAYLIE, [facility] [id number] 065 [place] 00:00:00 00:00:00 LATIFA [address] 2022-06-08 2022-06-08 Nurse Only Kaylie, 1.2.840.1 [id number] Methodi 00:00:00 00:00:[address] 3.430.2.7 Hospit a .3.775952 l .8 2022-06-07 2022-06-07 Documentat [place], 1.2.840.1 [id number] Methodi 00:00:00 00:00:00 ion [address]tha 02099.1.[address] 3.430.2.7 Hospit a .3.043766 l .8 2022-04-18 2022-04-18 Documentat [place], 1.2.840.1 [id number] Methodi 00:00:00 00:00:[address]tha 89118.1.[address] 3.430.2.7 Hospit a .3.037570 l .8 2022-04-13 2022-04-13 Refill Kaylie, 1.2.840.1 [id number] Methodi 00:00:00 00:00:00 Latifa 54615.1.1 704 3.430.2.7 Hospit a .3.357617 l .8 2022-03-27 2022-03-27 (WEB) STLMLC STLMLC [id number] Co mmon 00:00:00 00:00:00 [facility] 2022-03-14 2022-03-14 Outpatient GLOA, [facility] [id number] 720 [place] 00:00:00 00:00:00 LATIFA 868 Method i 2022-01-01 2022-01-01 OFFICE STLMLC STLMLC [id number] Co mmon 00:00:00 00:00:00 VISIT Spirit ESTAB PT - CHI LEVEL 4 [facility] 2021-12-05 2021-12-05 Outpatient KAYLIE, [facility] [id number] 911 [place] 00:00:00 00:00:00 LATIFA 062 Method i 2021-11-29 2021-11-29 Outpatient [facility], [facility] [id number] 290 [place] 00:00:00 00:00:00 LATIFA 373 Method i 2021-07-19 2021-07-19 SUB ANNUAL STLMLC STLMLC [id number] Common 00:00:00 00:00:00 MCR Spirit WELLNESS - [facility] VISIT [facility] 2021-07-03 2021-07-03 OFFICE STLMLC STLMLC [id number] Co mmon 00:00:00 00:00:00 VISIT Spirit ESTAB PT - CHI LEVEL 4 [facility] 2021-06-01 2021-06-01 Outpatient GLOA, [facility] [id number] 003 [place] 00:00:00 00:00:00 LATIFA 509 Method i 2021-05-19 2021-05-19 Outpatient [facility] [id number] 626 [place] 00:00:00 00:00:00 YESENIA [address] 2021-03-24 2021-03-24 Outpatient [facility] [id number] 545 [place] 00:00:00 00:00:00 YESENIA [address] 2021-02-03 2021-02-03 Outpatient [facility] [id number] 347 [place] 00:00:00 00:00:00 YESENIA [address] 2021-01-20 2021-01-20 Outpatient ARIC, [facility] 982 [id number] 629 [place] 00:00:00 00:00:00 YESENIA [address] 2021-01-04 2021-01-04 Outpatient STLMLC STLMLC [id number] Common 00:00:00 00:00:00 [facility] 2020-12-30 2020-12-30 Outpatient KAYLIE, [facility] [id number] 948 [place] 00:00:00 00:00:00 LATIFA [address] 2020-12-27 2020-12-27 Outpatient STLMLC STLMLC [id number] Common 00:00:00 00:00:00 [facility] 2020-12-09 2020-12-09 Outpatient ARIC, [facility] [id number] 304 [place] 00:00:00 00:00:00 YESENIA [address] 2020-12-02 2020-12-02 Outpatient JOEA, [facility] [id number] 074 [place] 00:00:00 00:00:00 LATIFA [address] 2020-11-30 2020-11-30 Outpatient STLMLC STLMLC [id number] Common 00:00:00 00:00:00 [facility] 2020-11-11 2020-11-11 Outpatient ARIC [facility] [id number] 557 [place] 00:00:00 00:00:00 YESENIA [address] 2020-09-09 2020-09-09 Outpatient ARIC, [facility] 811 [id number] 070 [place] 00:00:00 00:00:00 YESENIA [address] 2020-08-11 2020-08-11 Outpatient BRYANT, KERRI [facility] [id number] [place] 00:00:00 00:00:[address] 2020-07-15 2020-07-15 Outpatient KAYLIE [facility] [id number] 439 [place] 00:00:00 00:00:00 LATIFA [address] 2020-06-24 2020-06-24 Outpatient ARIC, [facility] 039 [id number] 518 [place] 00:00:00 00:00:00 YESENIA [address] 2020-05-31 2020-05-31 Outpatient GUERRA [facility] [id number] 850 [place] 00:00:00 00:00:00 GLADYS, [address] 2020-05-31 2020-05-31 Outpatient GUERRA [facility] [id number] 322 [place] 00:00:00 00:00:00 GLADYS, [address] 2020-05-18 2020-05-18 Outpatient FAKOYA, [facility] [id number] 021 [place] 00:00:00 00:00:00 LATIFA 428 Method i 2020-05-02 2020-05-02 [facility] [id number] Common 11:00:00 11:00:00 [facility] 2020-05-02 2020-05-02 Outpatient [facility] [id number] Common 10:20:00 10:20:00 [facility] 2020-05-02 2020-05-02 Outpatient STLMLC STLMLC [id number] Common 00:00:00 00:00:00 [facility] 2020-04-15 2020-04-15 Outpatient KAYLIE, [facility] [id number] 247 [place] 00:00:00 00:00:00 LATIFA 605 Method i 2020-02-26 2020-02-26 Outpatient KAYLIE, [facility] [id number] 952 [place] 00:00:00 00:00:00 LATIFA 866 Method i 2020-02-26 2020-02-26 Outpatient JOEA, [facility] [id number] 952 [place] 00:00:00 00:00:00 LATIFA 867 Method i 2020-02-22 2020-02-22 Outpatient JOEA, [facility] [id number] 611 [place] 00:00:00 00:00:00 LATIFA [address] 2019-06-09 2019-06-09 [facility] [id number] Common 09:00:00 09:00:00 [facility] 2019-06-02 2019-06-02 Out[facility] [id number] Common 10:00:00 10:00:00 t Urgent Urgent Care S pirit Care [facility] 2019-05-12 2019-05-12 Outpatient [facility] [id number] Common 15:20:00 15:20:[address] [facility] 2019-05-05 2019-05-05 Outpatient [facility] [id number] Common 10:20:00 10:20:[address] [facility] 2018-05-06 2018-05-06 Outpatient [facility] [id number] Common 09:17:00 09:17:[address] [facility] 2018-04-30 2018-04-30 Outpatient [facility] [id number] Common 08:30:00 08:30:[address] [facility] Results Test Description Test Time Test Comments Results Result Comments Source Albumin level 2023-02-23 14:10:00 Test Item Value Reference Range Interpretation Comme nts Albumin, S (test code = 1751-7) 4.4 g/dL 3.6-4.6 JUAN (test code = JUAN) Performed at: [address] [place] [address] [id number] Director: Deon Coburn MD, Phone: [phone] [facility] [id number] 14:10:00 Test Item Value Reference Range Interpretation Comments Creatinine (test code = 0.91 mg/dL 0.57-1.00 2160-0) eGFR (test code = 63 mL/min/1.73 >=59 65991-6) JUAN (test code = JUAN) Performed at: [address] [place] [address] [id number] Director: Deon Coburn MD, Phone: [phone] [facility] 14:10:00 Test Item Value Reference Range Interpretation Comments AST (test code 23 See_Comment [Automated m essage] = 1920-8) The system whic h generated this result transmit darshan reference range : 0 - 40 IU/L. The reference range was not used to interpret this result as normal/abnormal . JUAN (test code Performed at: - = JUAN) Lab[address] [id number] Director: Deon Coburn MD, Phone: [phone] [facility] (SGPT)2023-02-23 14:10:00 Test Item Value Reference Range Interpretation Comments ALT (test code 21 See_Comment [Automated m essage] = 1742-6) The system ic h generated this result transmit darshan reference range : 0 - 32 IU/L. The reference range was not used to interpret this result as normal/abnormal . JUAN (test code Performed at: - = JUAN) [address] [id number] Director: Deon Coburn MD, Phone: [phone] [facility]-reactive [id number] 14:10:00 Test Item Value Reference Range Interpretation Comments CRP (test code = 1 mg/L 1988-02) JUAN (test code = Performed at: ) [facility] [id number] Director: Deon Coburn MD, Phone: [phone] [facility] with platelet and [id number] 14:10:00 Test Item Value Reference Range Interpretation Comments WBC (test code = 5.3 See_Comment [Automated 6490-2) message] The system which generated this result transmitted reference range : 3.4 - 10.8 x10E3/uL. The reference range was not used to interpret this result as normal/abnormal . RBC (test code = 4.76 See_Comment [Automated 610-8) message] The system which generated this result transmitted reference range : 3.77 - 5.28 x10E6/uL. The reference range was not used to interpret this result as normal/abnormal . HGB (test code = 14.1 g/dL 11.1-15.9 718-7) HCT (test code = 42.4 % 34.0-46.6 4544-3) MCV (test code = 89 fL 79-97 787-2) MCH (test code = 29.6 pg 26.6-33.0 785-6) MCHC (test code = 33.3 g/dL 31.5-35.7 786-4) RDW (test code = 12.6 % 11.7-15.4 788-0) Platelet count (test 149 See_Comment L [Autom ated code = 777-3) message] The system which generated this result transmitted reference range : 150 - 450 x10E3/uL. The reference range was not used to interpret this result as normal/abnormal . Neutrophils (test 65 % Not Estab. code = 770-8) Lymphocytes (test 26 % Not Estab. code = 736-9) Monocytes (test code 7 % Not Estab. = 5905-5) Eosinophils (test 1 % Not Estab. code = 713-8) Basophils (test code 1 % Not Estab. = 706-2) Neutrophils, absolute 3.5 See_Comment [Auto mated (test code = 101-8) message] The system which generated this result transmitted reference range : 1.4 - 7.0 x10E3/uL. The reference range was not used to interpret this result as normal/abnormal . Lymphocytes, absolute 1.4 See_Comment [Auto mated (test code = 731-0) message] The system which generated this result transmitted reference range : 0.7 - 3.1 x10E3/uL. The reference range was not used to interpret this result as normal/abnormal . Monocytes, absolute 0.4 See_Comment [Automa darshan (test code = 742-7) message] The system which generated this result transmitted reference range : 0.1 - 0.9 x10E3/uL. The reference range was not used to interpret this result as normal/abnormal . Eosinophils, absolute 0.0 See_Comment [Auto mated (test code = 711-2) message] The system which generated this result transmitted reference range : 0.0 - 0.4 x10E3/uL. The reference range was not used to interpret this result as normal/abnormal . Basophils, absolute 0.0 See_Comment [Automa darshan (test code = 704-7) message] The system which generated this result transmitted reference range : 0.0 - 0.2 x10E3/uL. The reference range was not used to interpret this result as normal/abnormal . Immature granulocytes 0 % Not Estab. (test code = 30419-2) Immature 0.0 See_Comment [Automated granulocytes, message] The absolute (test code = system which 54310-9) generated this result transmitted reference range : 0.0 - 0.1 x10E3/uL. The reference range was not used to interpret this result as normal/abnormal . JUAN (test code = JUAN) Performed at: - [facility] [id number] Director: Deon Coburn MD, Phone: [phone] Lab Interpretation Abnormal (test code = 03832-1) [facility] [id number] 14:10:00 Test Item Value Reference Range Interpretation Comments Sedimentation rate 2 See_Comment [Automat ed (test code = 4537-7) message ] The system which generated this result transmitted reference range : 0 - 40 mm/hr. T he reference range was not used to interpret this result as normal/abnormal . JUAN (test code = Performed at: JUAN) - [facility] [id number] Director: Deon Coburn MD, Phone: [phone] [facility] hydroxy [id number] 14:10:00 Test Item Value Reference Range Interpretation Comments Vitamin D, 54.9 ng/mL 30.0-100.0 Vitamin D defic iency 25-hydroxy has been define d by (test code = the [place] 98981-2) ofMedicine and an Endocrine Socie ty practice guidel ine as alevel of serum 25-OH vitamin D less than 20 ng/mL (1,2). The Endocrine Socie ty went on to furt her define vitamin Dinsufficiency as a level between 2 1 and 29 ng/mL (2).1. IOM ([place] of Medicine). 2010 . Dietary referen ce intakes for sammi cium and [place]: The National Academies Press .2. Bari MF, Dexter BAEZ, Alek LU, et al. Evaluation, treatment, and prevention of v itamin D deficiency: a n Endocrine Socie ty clinical practi ce guideline. JCEM . 2010; 96(7):1911 -30. JUAN (test code Performed at: 01 - = JUAN) [facility] [id number] Director: Deon Coburn MD, Phone: [phone] [facility] [id number] 21:12:00 Test Item Value Reference Range Interpretation Comments Ionized calcium (test 4.8 mg/dL 4.5-5.6 code = 52674-5) JUAN (test code = JUAN) Performed at: - [facility] [id number] Director: Deon Coburn MD, Phone: [phone] [facility]
--- NOTE | 2023-04-01 11:38 | P.CNS ---
Date of Consult: 04/01/23 Reason for Consult: Medical management. Requesting Physician: Jeramie Morocho Chief Complaint: Low back pain, bilateral lower extremity weakness History of Present Illness: Patient is an 83-year-old female with a past medical history significant for DM 2, hypertension, CKD, hyperlipidemia who presents for planned procedure with her orthopedic spine surgeon. Patient reported that she has been having lumbar stenosis for the past 3 years. Patient reported that she has bilateral lower extremity weakness worse on the right lower extremity. Patient rated pain in the lower back as 8/10 in severity and described pain as dull in quality. Patient reported that she has attempted steroid injection, physical therapy but symptoms have persisted over time. Patient denies any other signs and symptoms. Symptoms are aggravated or relieved by nothing. Patient tolerated the procedure and is currently resting in bed. Allergies Penicillins Allergy (Verified 03/28/23 13:21) Rash amoxicillin Adverse Reaction (Verified 03/28/23 13:21) Rash amoxicillin Adverse Reaction (Severe, Uncoded 03/28/23 13:21) Hives Home Medications: Acetaminophen [Tylenol 8 Hour] 650 mg PO DAILY 03/28/23 Atorvastatin Calcium 20 mg PO DAILY 03/28/23 Calcium Carbonate/Vitamin D3 [Calcium 600 mg-D3 20 Mcg Cplt] 1 tab PO DAILY 03/28/23 Krill/Om-3/Dha/Epa/Phospho/Ast [Krill Oil 1,000 mg Softgel] 1 tab PO DAILY 03/28/23 Lisinopril [Zestril] 5 mg PO DAILY 03/28/23 flaxseed oiL [Flaxseed Oil] 1 tab PO DAILY 03/28/23 - Past Medical/Surgical History -: HTN -: HLD -: CKD -: DM 2 -: Tonsillectomy -: Left knee meniscus surgery -: Bilateral wrist surgery -: Ankle fracture surgery -: Cataract surgery -: Elbow surgery - Social History Smoking Status: Never smoker Alcohol use: No CD- Drugs: No Caffeine use: Yes Place of Residence: Home Review of Systems General: Weakness Eyes: Unremarkable ENT: Unremarkable Respiratory: Unremarkable Cardiovascular: Unremarkable Gastrointestinal: Unremarkable Genitourinary: Unremarkable Musculoskeletal: Leg Pain Integumentary: Unremarkable Neurological: Weakness Lymphatics: Unremarkable Physical Examination Temp Pulse Resp BP Pulse Ox 97.6 F 64 14 111/69 04/01/23 10:52 04/01/23 10:45 04/01/23 10:52 04/01/23 10:45 General: Alert, In no apparent distress, Cooperative HEENT: Atraumatic, PERRLA, Mucous membr. moist/pink, EOMI, Sclerae nonicteric Neck: Supple, 2+ carotid pulse no bruit, No LAD, Without JVD or thyroid abnormality Respiratory: Clear to auscultation bilaterally, Normal air movement Cardiovascular: No edema, Regular rate/rhythm, Normal S1 S2 Capillary refill: <2 Seconds Gastrointestinal: Normal bowel sounds, Non-distended, No tenderness Musculoskeletal: No clubbing, No swelling, No tenderness Integumentary: No rashes, No breakdown, Other Neurological: Normal speech, Normal tone, Normal affect Lymphatics: No axilla or inguinal lymphadenopathy Conclusions/Impression: --Lumbar stenosis with neurogenic claudication. Status post L3-L4 and L4-L5 decompression. PT eval and treat. Orthopedic spine surgeon on board. We will await further recommendations. --Acute pain. We will manage pain with current pain medication regimen. --DM2. Controlled with diet. Hemoglobin A1c is 5.6. Continue supportive care. -- Hypertension. Stable. Continue medication. --Hyperlipidemia. Continue statin --CKD 2. Improvement in kidney functions noted from 2 months ago from a GFR of 65 to 71. We will continue to monitor renal functions. --DVT prophylaxis with SCDs.. Physician Review: Patient Assessed, Agree with Above Assessment and Plan Critical Care: No
--- NOTE | 2023-04-01 11:56 | RAD REPORT ---
EXAM DESCRIPTION: RAD - Fluoroscopy <1 Hour - 04/01/2023 10:38 am CLINICAL HISTORY: SPINAL DECOMPRESSION, L3-L5 COMPARISON: None available. FINDINGS: Six Images were sent to PACS, documenting needle positions during an image spinal decompre ssion surgery. No radiologist was available for the procedure, nor will any image interpretation he p rovided. Please refer to the procedural report for additional details. Fluoroscopy time: Less than 0.1 Minutes. Skin dose: 2.39 mGy IMPRESSION: Documentation of fluoroscopy utilization as above.
[2023-04-01 12:36] VITALS: BMI 27.7
[2023-04-01 13:51] LABS: Magnesium 2.3 mg/dL (1.6-2.4); Phosphorus 3.8 mg/dL (2.5-4.9)
[2023-04-01] MEDS: CEFAZOLIN 1 GM in NA CHLORIDE 0.9% 50 ML IVPB SCH (16:41)
[2023-04-02] MEDS: CEFAZOLIN 1 GM in NA CHLORIDE 0.9% 50 ML IVPB SCH (00:35)
[2023-04-02] MEDS ORDERED: NA CHLORIDE 0.9% 500 ML IV ONE (03:36)
[2023-04-02 03:44] LABS: Absolute Lymphocytes (CBC) 0.7 K/uL (0.7-4.9); Hematocrit 35.5 % (36.0-45.0); Lymphocytes % 7.4 % (15.3-44.8); MCV 89.6 fL (80-100); RBC Red Blood Cell Count 3.96 M/uL (3.86-4.86)
[2023-04-02 05:30] LABS: Blood Morphology Comment NOT SEEN (NOT SEEN); Platelet Estimate ADEQ
[2023-04-02] MEDS: CALCIUM CARB 500MG/VIT D 200 IU TAB PO SCH (08:27)
[2023-04-02] MEDS: ATORVASTATIN 20 MG TAB PO SCH (08:27)
[2023-04-02] MEDS: PHOSPHO PO SCH (08:28)
[2023-04-02] MEDS: EPA PO SCH (08:28)
[2023-04-02] MEDS: lisinopriL 5 MG TAB PO SCH (08:28)
[2023-04-02] MEDS: [UNRECOGNIZED DRUG - OTHER] PO SCH (08:28)
[2023-04-02] MEDS: DHA PO SCH (08:28)
[2023-04-02] MEDS: KRILL PO SCH (08:28)
[2023-04-02] MEDS: AST PO SCH (08:28)
[2023-04-02] MEDS: FLAXSEED OIL 1000 MG PO SCH (08:29)
[2023-04-02] MEDS ORDERED: VITAMIN D3 PO SCH (09:00)
[2023-04-02] MEDS ORDERED: lisinopriL 5 MG TAB PO SCH (09:00)
[2023-04-02] MEDS ORDERED: CALCIUM CARBONATE PO SCH (09:00)
[2023-04-02] MEDS: ACETAMINOPHEN 325 MG TABLET PO PRN (16:30)
[2023-04-03] MEDS: ACETAMINOPHEN 325 MG TABLET PO PRN (02:05)
[2023-04-03] MEDS: CALCIUM CARB 500MG/VIT D 200 IU TAB PO SCH (08:15)
[2023-04-03] MEDS: lisinopriL 5 MG TAB PO SCH (08:15)
[2023-04-03] MEDS: ATORVASTATIN 20 MG TAB PO SCH (08:15)
[2023-04-03 08:20] VITALS: BP 142/65
[2023-04-03] MEDS: DHA PO SCH (08:20)
[2023-04-03] MEDS: AST PO SCH (08:20)
[2023-04-03] MEDS: PHOSPHO PO SCH (08:20)
[2023-04-03] MEDS: [UNRECOGNIZED DRUG - OTHER] PO SCH (08:20)
[2023-04-03] MEDS: KRILL PO SCH (08:20)
[2023-04-03] MEDS: FLAXSEED OIL 1000 MG PO SCH (08:20)
[2023-04-03] MEDS: EPA PO SCH (08:20)
[2023-04-03 08:31] VITALS: TEMP 97.2
--- NOTE | 2023-04-03 08:59 | P.DS ---
Admission Date: 04/01/23 Discharge Date: 04/03/23 Disposition: [place] [facility]/HOME HEALTH CARE Discharge Condition: FAIR Reason for Admission: Low back pain, bilateral lower extremity weakness - Problems (1) Lumbar spinal stenosis Status: Acute (2) Type II diabetes mellitus Status: Acute (3) Essential hypertension Status: Acute Brief History of Present Illness: Patient is an 83-year-old female with a past medical history significant for DM 2, hypertension, CKD, hyperlipidemia who presented for planned procedure with her orthopedic spine surgeon. Patient reported that she has been having lumbar stenosis for the past 3 years. Patient reported that she has bilateral lower extremity weakness worse on the right lower extremity. Patient rated pain in the lower back as 8/10 in severity and described pain as dull in quality. Patient reported that she received steroid injection, physical therapy but symptoms have persisted over time. Patient underwent lumbar spine procedure. Hospitalist service was consulted postop to help manage her medical problems and pain. Hospital Course: Patient placed under observation on the medical floor after surgery. She was monitored and treated for pain. Her pain became better controlled after 24 hours of observation. She was seen and evaluated by physical therapy. Patient is now able to ambulate in the hallway without assistance. Her pain is well controlled today and patient is deemed stable for discharge. Vital Signs/Physical Exam: Temp Pulse Resp BP Pulse Ox 97.2 F 77 16 142/65 H 97 04/03/23 08:00 04/03/23 08:15 04/03/23 08:00 04/03/23 08:15 04/03/23 08:00 General: Alert, In no apparent distress, Oriented x3 HEENT: Mucous membr. moist/pink Neck: Supple, JVD not distended Respiratory: Clear to auscultation bilaterally Cardiovascular: No edema, Regular rate/rhythm, Normal S1 S2, No murmurs Gastrointestinal: Normal bowel sounds, Soft and benign, Non-distended, No tenderness Musculoskeletal: No swelling Integumentary: No rashes, No cyanosis Neurological: Normal strength at 5/5 x4 extr Lymphatics: No axilla or inguinal lymphadenopathy Laboratory Data at Discharge: WBC 9.80 thou/uL (4.3-10.9) 04/02/23 02:16 Hgb 11.9 g/dL (12.0-15.0) L 04/02/23 02:16 Hct 35.5 % (36.0-45.0) L 04/02/23 02:16 Plt Count 138 thou/uL (152-406) L 04/02/23 02:16 Sodium 138 mEq/L (136-145) 04/02/23 02:16 Potassium 5.0 mEq/L (3.5-5.1) 04/02/23 02:16 BUN 21 mg/dL (7-18) H 04/02/23 02:16 Creatinine 0.93 mg/dL (0.55-1.02) 04/02/23 02:16 Glucose 131 mg/dL (74-106) H 04/02/23 02:16 Phosphorus 3.8 mg/dL (2.5-4.9) 04/01/23 13:27 Magnesium 2.3 mg/dL (1.6-2.4) 04/01/23 13:27 Triglycerides 61 mg/dL (<150) 04/02/23 02:16 Cholesterol 153 mg/dL (<200) 04/02/23 02:16 HDL Cholesterol 61 mg/dL (40-60) H 04/02/23 02:16 Cholesterol/HDL Ratio 2.51 04/02/23 02:16 Home Medications: Acetaminophen [Tylenol 8 Hour] 650 mg PO DAILY 03/28/23 Atorvastatin Calcium 20 mg PO DAILY 03/28/23 Calcium Carbonate/Vitamin D3 [Calcium 600 mg-D3 20 Mcg Cplt] 1 tab PO DAILY 03/28/23 Krill/Om-3/Dha/Epa/Phospho/Ast [Krill Oil 1,000 mg Softgel] 1 tab PO DAILY 03/28/23 Lisinopril [Zestril] 5 mg PO DAILY 03/28/23 flaxseed oiL [Flaxseed Oil] 1 tab PO DAILY 03/28/23 Diet: AHA Activity: Fall precautions Followup: Cristina Langford NP [Primary Care Provider] - 1-2 Weeks Jeramie Morocho MD [ACTIVE - CAN ADMIT] - Time spent managing pt's care (in minutes): 28
[2023-04-03 09:08] VITALS: O2SAT 97
== END 2023-04-03 10:00 | disposition home health service (06) ==
LOC: OR 06:01 → 2ND 10:44
PROVIDERS: ADMIT Orthopaedic Surgery; ATTEND Orthopaedic Surgery
PROC: 01NB0ZZ Release Lumbar Nerve, Open Approach (ICD-10-PCS; principal; 2023-04-01 07:00)
DX: M48.062 Spinal stenosis, lumbar region with neurogenic claudication (principal); E11.9 Type 2 diabetes mellitus without complications; E78.5 Hyperlipidemia, unspecified; N18.2 Chronic kidney disease, stage 2 (mild); I10 Essential (primary) hypertension; R53.1 Weakness; Z88.0 Allergy status to penicillin; Z88.6 Allergy status to analgesic agent
CPT/HCPCS: 85025 ×2; 80048 ×2; 36415 ×3; 83735; 84100; 80061; 83036; 97110; 97116 ×2; 97163; 97530 ×2; 94010 ×2; 63047; 63048 ×3; J2704 ×4; J2001; J2250; J1170; J3010; J1100; J2405 ×2; J7120 ×2; J7040; J0690 ×2; G0378 ×4; 76000; J1030

== ENCOUNTER 2023-07-18 15:07 | Day surgery (SDC) | payer OTHER ==
[2023-07-16 15:18] LABS: Absolute Lymphocytes (CBC) 1.7 K/uL (0.7-4.9); Hematocrit 40.8 % (36.0-45.0); MCV 87.6 fL (80-100); MPV 9.2 fL (7.6-11.3); Platelets 177 thou/uL (152-406); RBC Red Blood Cell Count 4.66 M/uL (3.86-4.86)
[2023-07-16 15:22] LABS: Protime INR 0.95
[2023-07-16 15:28] LABS: Potassium 3.8 mEq/L (3.5-5.1)
--- NOTE | 2023-07-16 21:38 | RAD REPORT ---
EXAM DESCRIPTION: RAD - Chest Pa And Lat (2 Views) - 07/16/2023 3:13 pm CLINICAL HISTORY: Pre op pending heart catheterization. Hypertension COMPARISON: No comparisons TECHNIQUE: PA and lateral views of the chest were obtained. FINDINGS: The lungs are clear. Heart size is normal and central vasculature is within normal limits. Retrosternal 12 millimeter radiodensity, may represent a subpleural granuloma. No pleural effusion o r pneumothorax seen. No acute bony finding noted. Small rib deformities on the left suggestive of hea led fractures. IMPRESSION: No acute cardiopulmonary process.
--- NOTE | 2023-07-17 12:38 | EKG ---
Test Date: 2023-07-16 Test Time: 14:52:46 Telephone Clerk: OMKAR MEASUREMENT RESULTS: Intervals: Rate: 90 MN: 232 QRSD: 64 QT: 370 QTc: 452 [place]: P: 70 MN: 232 QRS: 56 T: 39 INTERPRETIVE STATEMENTS: Sinus rhythm with 1st degree AV block with premature supraventricular complexes Low voltage QRS Cannot rule out Anterior infarct, age undetermined Abnormal ECG No previous ECG available for comparison Electronically Signed On 07-17-23 12:36:24 CDT by Maurisio Fritz
[2023-07-18 11:32] VITALS: TEMP 98
[~2023-07-18 15:07] MED LIST: FENTANYL CITR 100 MCG/2 ML ONE; HEPA 1000U/500MLS 2,000 UNIT/1,000 ML BAG IV ONE; HEPARIN 10,000 UNIT/10 ML VIAL IV ONE; HEPARIN 5000 UNIT/ML 1 ML VIAL ONE; LIDOCAINE 1% 20 ML MDV ONE; MIDAZOLAM HCL 2 MG/2 ML INJ ONE; NA CHLORIDE 0.9% 500 ML ONE; VERAPAMIL HCL 10 MG/4 ML VIAL IV ONE
[2023-07-18 15:50] VITALS: O2SAT 99
[2023-07-18 15:51] VITALS: BP 112/62
--- NOTE | 2023-07-18 22:28 | OP ---
Date of Procedure: 07/18/2023 Surgeon: LINDA DUMONT Procedures Performed: 1.Selective coronary artery angiogram. 2.Left heart catheterization. 3.Right heart catheterization. Indication: Severe unexplained shortness of breath on minimal exertion. Access: 1.Right IJ 7-Tristanian, closed with manual pressure. 2.Right radial access, 6-Tristanian closed with TR band. Complications: None. Bleeding: Less than 20 mL. Description Of Procedure: After risks, benefits, alternatives were explained, patient agreed to proc edure and signed informed consent. Patient was brought into cardiac catheterization laboratory. Pre pped and draped in usual sterile fashion. I accessed right radial artery using pediatric micropunctu re kit and placed 6-Tristanian slender sheath and then accessed the right IJ using ultrasound guidance mi cropuncture and placed 7-Tristanian [place] sheath and then took 5-Tristanian [place] 4 catheter over the J-wi re into the aortic root, crossed the aortic valve over the wire, measured the LVEDP. Pullback did no t record any gradient and then engaged left main, took standard views and then the RCA and took stand ebenezer views and then removed the catheter and sheath, placed TR band with good hemostasis. Then, I too k a 7-Tristanian balloon-tipped [place] catheter through the IJ access into the right atrium, right ventricl e, pulmonary artery, and wedge, obtained waveform and pressure and then thermodilution cardiac output was obtained and then removed the catheter and sheath, and manual pressure was used for closure. Go od hemostasis. Findings: 1.Left main normal. 2.LAD, moderate size. Proximal segment is normal. Mid segment, there is a 40% stenosis and the res t of the LAD is normal with normal diagonal branches. 3.Left circumflex; small, normal. 4.RCA; large and dominant with proximal 30%, mid 10% to 20% stenosis. 5.LVEDP elevated at 50 mmHg. Right heart catheterization numbers: RA pressure was 8. RV pressure was 30/5 with mean of 10. PA p ressure was 25/12 with mean of 18. Pulmonary wedge pressure was 10 and cardiac output average was 5. 45 L/minute. Conclusion: 1.Mild nonobstructive coronary artery disease. 2.Mildly elevated filling pressures, likely due to diastolic heart failure. Plan: Medical management. SR/MODL Voice ID: [id number] Report ID: [id number]
== END 2023-07-18 15:30 | disposition home or self-care (01) ==
LOC: CCL 15:07
PROVIDERS: ATTEND Internal Medicine
DX: I25.10 Atherosclerotic heart disease of native coronary artery without angina pectoris (principal); I10 Essential (primary) hypertension; I44.0 Atrioventricular block, first degree; R00.2 Palpitations; E78.2 Mixed hyperlipidemia; Z88.0 Allergy status to penicillin; Z82.49 Family history of ischemic heart disease and other diseases of the circulatory system
CPT/HCPCS: 36415; 71046; 76937; 80048; 85025; 85610; 85730; 93005; 93460; C1893; J1644; J2001; J2250; J3010; J7040; Q9966